=== PATIENT | female | born 1985 | race Two or more races ===

== ENCOUNTER 2019-09-01 20:27 | Emergency (ER) | payer MEDICAID ==
[~2019-09-01] VITALS: Ht 160 cm; Wt 103.0 kg
[2019-09-01 20:34] VITALS: BP 144/87
[2019-09-01] MEDS ORDERED: KETOROLAC 60MG/2ML VIAL IM ONE (21:00)
[2019-09-01] MEDS ORDERED: KETOROLAC 30MG/ML VIAL IV ONE (21:00)
== END 2019-09-01 21:23 | disposition home or self-care (01) ==
LOC: ER 20:27
DX: S39.012A Strain of muscle, fascia and tendon of lower back, initial encounter (principal); V49.59XA Passenger injured in collision with other motor vehicles in traffic accident, initial encounter; Y93.89 Activity, other specified; Y92.89 Other specified places as the place of occurrence of the external cause; Y99.8 Other external cause status
CPT/HCPCS: 96372; 99283; J1885; Z7610

== ENCOUNTER → 2021-02-15 | Outpatient (CLI) | payer BC ==
[2021-02-15 13:22] LABS: BASOPHILS % 0.4 % (0.0-2.0); EOSINOPHILS % 1.6 % (0.0-5.0); HEMATOCRIT. 39.9 % (36.0-48.0); HEMOGLOBIN. 13.4 g/dL (12.0-16.0); LYMPHOCYTES % 34.1 % (20.0-50.0); MEAN CORPUSCULAR HEMOGLOBIN 28.1 pg (28.0-32.0); MEAN CORPUSCULAR VOLUME 83.6 fL (81.0-99.0); MEAN PLATELET VOLUME 8.4 fl (7.4-10.4); MONOCYTES % 5.7 % (2.0-8.0); NEUTROPHILS % 58.2 % (40.0-76.0); PLATELET 330 x1000/uL (130-400); RED BLOOD CELL COUNT 4.77 mill/uL (4.2-5.4)
[2021-02-15 13:36] LABS: CHLORIDE 105 mEq/L (98-107)
[2021-02-15 13:43] LABS: LDL CHOLESTEROL 90 mg/dL (5-100)
[2021-02-15 13:45] LABS: HDL CHOLESTEROL 60 mg/dL (40-59)
[2021-02-15 15:16] LABS: CLARITY URINE CLEAR (CLEAR); COLOR URINE YELLOW (YELLOW); KETONES URINE NEGATIVE (NEGATIVE); LEUKOCYTE ESTERASE URINE NEGATIVE (NEGATIVE); NITRITE URINE NEGATIVE (NEGATIVE); OCCULT BLOOD URINE NEGATIVE (NEGATIVE); PROTEIN URINE NEGATIVE (NEGATIVE); SPECIFIC GRAVITY URINE 1.028 (1.005-1.030); UROBILINOGEN URINE 0.2 E.U./dL (0.2-1.0)
== END | disposition home or self-care (01) ==
LOC: LAB 12:49
PROVIDERS: ATTEND Internal Medicine Nephrology
DX: Z00.00 Encounter for general adult medical examination without abnormal findings (principal)
CPT/HCPCS: 36415; 80053; 80061; 81003; 82306; 83036; 84439; 84443; 84481; 85025